=== PATIENT | female | born 1945 | race Caucasian/White ===

== ENCOUNTER 2016-03-05 12:34 | Emergency (ER) | payer MEDICARE ==
[~2016-03-05] VITALS: Ht 163.8 cm; Wt 102.3 kg
[2016-03-05 12:42] VITALS: BP 179/114; PULSE 107; RESP 18; TEMP 98.6; O2SAT 95
[2016-03-05] MEDS ORDERED: CARD4TAB2 PO (13:17)
[2016-03-05] MEDS ORDERED: PRED5PAK PO (13:17)
[2016-03-05] MEDS ORDERED: NEUR600T PO (13:17)
[2016-03-05] MEDS ORDERED: FERR325T PO (13:17)
[2016-03-05] MEDS ORDERED: WARF4TAB52 PO (13:17)
[2016-03-05] MEDS ORDERED: LOSA50TA PO (13:17)
[2016-03-05] MEDS ORDERED: METH5TAB4 PO (13:17)
[2016-03-05] MEDS ORDERED: CARD120T4 PO (13:17)
[2016-03-05] MEDS ORDERED: PREV15CA15 PO (13:17)
[2016-03-05] MEDS ORDERED: ISOS10TA3 PO (13:17)
[2016-03-05] MEDS ORDERED: HYDR25TA35 PO (13:17)
[2016-03-05] MEDS ORDERED: ROSU10 PO (13:17)
[2016-03-05] MEDS ORDERED: MIRTA15 PO (13:17)
[2016-03-05] MEDS ORDERED: LABE100T2 PO (13:17)
[2016-03-05] MEDS ORDERED: WARF-18 PO (13:17)
[2016-03-05] MEDS ORDERED: LANTINJ SQ (13:17)
[2016-03-05] MEDS ORDERED: LEVA500T PO (13:17)
[2016-03-05] MEDS ORDERED: CYMB30CA PO (13:17)
[2016-03-05] MEDS ORDERED: SODIUM CHLOR 0.9% 1000 ML INJ 1,000 ML IV SCH (13:21)
[2016-03-05] MEDS ORDERED: SODIUM CHLORIDE 0.9% FLUSH 5 ML FLUSH IVF PRN (13:30)
[2016-03-05] MEDS ORDERED: MORPHINE SULFATE 4 MG/ML INJ IV PUSH ONE ×2 (13:30→15:45)
[2016-03-05] MEDS ORDERED: ONDANSETRON HCL 4 MG/2 ML VIAL IVP ONE (13:30)
--- NOTE | 2016-03-05 14:03 | PD ---
HPI Chief Complaint: Fall Time Seen by Provider: 13:13 Travel History International Travel<30 days: No Contact w/Intl Traveler<30days: No Traveled to known affect area: No History of Present Illness HPI Patient is a 70-year-old female who presents to emergency room her daughter for evaluation of fall. Patient reports that on Thursday night, she was having a bad dream, reports that she ended up falling out of bed and landed on the floor. Patient reports that the way she fell, she did not hit her head on the ground. Patient adamantly denies injury to the head or neck. Reports that when she fell , she landed on her low back and was wedged in between her bed as well as a mattress which was propped up against the wall. Reports that she was able to get up and ambulate and get back into bed after her fall. Reports that she felt sore on Thursday but reports that by Thursday night, she had increased pain to her low back. Patient reports that she has not taken any medication for pain. Patient reports that she woke up this morning and had severe pain to her right lower back, reports that pain is causing her to have difficulties with ambulation. Patient denies saddle anesthesia. Patient denies incontinence of urine or bowel. Patient reports that she is able to walk, reports that his chest "painful to walk." PFSH Past Medical History Hx Anticoagulant Therapy: Yes (coumadin) Atrial Fibrillation: Yes Heart Rhythm Problems: Yes Cardiovascular Problems: Yes (afib) Cerebrovascular Accident: Yes Diabetes: Yes Patient Takes Glucophage: No Diminished Hearing: No Fibromyalgia: Yes Hypertension: Yes Integumentary: Yes (PSORIASIS) Renal Failure: Yes (STAGE 3) Thyroid Disease: Yes Tetanus Vaccination: Unknown Influenza Vaccination: Yes ?: Not Past Surgical History Thoracic Surgery: Yes (LUNG BIOPSY (BENIGN)) Other Surgery: Yes (LLE SPIDER BITE) Family History Family History: Negative Social History Alcohol Use: Yes (WINE, RARE) Tobacco Use: No Substance Use: No Allergies-Medications (Allergen,Severity, Reaction): Coded Allergies: Erythromycin (Verified Allergy, Severe, severe body pain, 03/05/16) Penicillin (Verified Allergy, Severe, rash, 03/05/16) Sulfa (Verified Allergy, Severe, rash, 03/05/16) Terramycin (Verified Allergy, Severe, rash, 03/05/16) Reported Meds & Prescriptions Reported Meds & Active Scripts Active Vicodin (Hydrocodone-Acetaminophen) 5-300 Mg Tab 1 Tab PO Q4H PRN Reported Crestor (Rosuvastatin Calcium) 10 Mg Tab 10 Mg PO HS Cardura (Doxazosin Mesylate) 4 Mg Tab 4 Mg PO BID Mirtazapine 15 Mg Tab 15 Mg PO HS Prevacid (Lansoprazole) 15 Mg Capdr 15 Mg PO DAILY Ferrous Sulfate 325 Mg Tab 325 Mg PO DAILY Cymbalta DR (Duloxetine HCl) 30 Mg Capdr 90 Mg PO DAILY Neurontin (Gabapentin) 600 Mg Tab 600 Mg PO BID Methimazole 5 Mg Tab 5 Mg PO DAILY Labetalol (Labetalol HCl) 100 Mg Tab 50 Mg PO BID Hydralazine (Hydralazine HCl) 25 Mg Tab 25 Mg PO BID Take with a meal Losartan (Losartan Potassium) 50 Mg Tab 50 Mg PO BID Isosorbide Mononitrate 10 Mg Tab 15 Mg PO BID Take 2 doses 7 hours apart. Cardizem (Diltiazem HCl) 120 Mg Tab 120 Mg PO TID Warfarin 2.5 Mg Tab 2.5 Mg PO DAILY Warfarin 1 Mg Tab 1.25 Mg PO WEEKLY Lantus Solostar Pen Inj (Insulin Glargine) 300 Unit/3 Ml Pen 35 Units SQ HS Prednisone (21) 5 mg tab Dose Pack (Prednisone) 5 Mg Dspk 5 Mg PO DIRECTED Levaquin (Levofloxacin) 500 Mg Tab 500 Mg PO DAILY Review of Systems General / Constitutional: No: Fever Eyes: No: Visual changes HENT: No: Headaches Cardiovascular: No: Chest Pain or Discomfort Respiratory: No: Shortness of Breath Gastrointestinal: No: Nausea, Vomiting, Diarrhea, Abdominal Pain Genitourinary: No: Dysuria Musculoskeletal: Positive: Limited ROM, Pain (pain to right lower back ) Skin: No Rash Neurologic: No: Weakness Psychiatric: No: Depression Endocrine: No: Polydipsia Hematologic/Lymphatic: No: Easy Bruising Physical Exam Narrative GENERAL: No acute distress, nontoxic SKIN: Warm and dry. HEAD: Atraumatic. Normocephalic. EYES: Pupils equal and round. No scleral icterus. No injection or drainage. ENT: No nasal bleeding or discharge. Mucous membranes pink and moist. NECK: Trachea midline. No JVD. CARDIOVASCULAR: Regular rate and rhythm. No murmur appreciated. RESPIRATORY: No accessory muscle use. Clear to auscultation. Breath sounds equal bilaterally. GASTROINTESTINAL: Abdomen soft, non-tender, nondistended. Hepatic and splenic margins not palpable. MUSCULOSKELETAL: No obvious deformities. No clubbing. No cyanosis. No edema. Patient with tenderness to her right lumbar paraspinal muscles, patient with no pain with straight leg raises, no obvious deformities or bruising's seen on evaluation NEUROLOGICAL: Awake and alert. No obvious cranial nerve deficits. Motor grossly within normal limits. Normal speech. PSYCHIATRIC: Appropriate mood and affect; insight and judgment normal. Data Data Last Documented VS Vital Signs Date Time Temp Pulse Resp B/P Pulse Ox O2 Delivery O2 Flow Rate FiO2 03/05/16 15:20 99 16 188/114 94 Room Air 03/05/16 12:42 98.6 Orders Basic Metabolic Panel (Bmp) (03/05/16 13:21) Complete Blood Count With Diff (03/05/16 13:21) Prothrombin Time / Inr (Pt) (03/05/16 13:21) Act Partial Throm Time (Ptt) (03/05/16 13:21) Urinalysis - C+S If Indicated (03/05/16 13:21) Iv Access Insert/Monitor (03/05/16 13:21) Morphine Inj (Morphine Inj) (03/05/16 13:30) Ondansetron Inj (Zofran Inj) (03/05/16 13:30) Sodium Chlor 0.9% 1000 Ml Inj (Ns 1000 M (03/05/16 13:21) Sodium Chloride 0.9% Flush (Ns Flush) (03/05/16 13:30) Ct Lumb Spine W/O Contrast (03/05/16 ) Ct Abd/Pel W/O Iv Contrast (03/05/16 13:21) Morphine Inj (Morphine Inj) (03/05/16 15:45) Labs Laboratory Tests Test 03/05/16 03/05/16 13:45 14:01 Urine Collection Type CLEAN CATCH Urine Color YELLOW Urine Turbidity CLEAR Urine pH 5.5 Urine Specific [place] 1.022 Urine Protein 30 mg/dL Urine Glucose (UA) 500 mg/dL Urine Ketones NEG mg/dL Urine Occult Blood LARGE Urine Nitrite NEG Urine Bilirubin NEG Urine Leukocyte Esterase NEG Urine RBC 4-9 /hpf Urine WBC 3-5 /hpf Urine Squamous Epithelial 0-5 /hpf Cells Urine Amorphous Sediment FEW Urine Hyaline Casts 0-2 /lpf Microscopic Urinalysis Comment CULT NOT INDICATED White Blood Count 6.9 TH/MM3 Red Blood Count 3.80 MIL/MM3 Hemoglobin 11.4 GM/DL Hematocrit 33.8 % Mean Corpuscular Volume 88.9 FL Mean Corpuscular Hemoglobin 29.9 PG Mean Corpuscular Hemoglobin 33.7 % Concent Red Cell Distribution Width 14.9 % Platelet Count 238 TH/MM3 Mean Platelet Volume 8.6 FL Neutrophils (%) (Auto) 82.3 % Lymphocytes (%) (Auto) 12.2 % Monocytes (%) (Auto) 5.1 % Eosinophils (%) (Auto) 0.1 % Basophils (%) (Auto) 0.3 % Neutrophils # (Auto) 5.8 TH/MM3 Lymphocytes # (Auto) 0.8 TH/MM3 Monocytes # (Auto) 0.3 TH/MM3 Eosinophils # (Auto) 0.0 TH/MM3 Basophils # (Auto) 0.0 TH/MM3 CBC Comment DIFF FINAL Differential Comment Prothrombin Time 15.0 SEC Prothromb Time International 1.3 RATIO Ratio Activated Partial 35.0 SEC Thromboplast Time Sodium Level 140 MEQ/L Potassium Level 4.2 MEQ/L Chloride Level 102 MEQ/L Carbon Dioxide Level 28.5 MEQ/L Anion Gap 10 MEQ/L Blood Urea Nitrogen 28 MG/DL Creatinine 1.90 MG/DL Estimat Glomerular Filtration 26 ML/MIN Rate Random Glucose 256 MG/DL Calcium Level 8.2 MG/DL [facility] Medical Decision Making Medical Screen Exam Complete: Yes Emergency Medical Condition: Yes Interpretation(s) Vital Signs Date Time Temp Pulse Resp B/P Pulse Ox O2 Delivery O2 Flow Rate FiO2 03/05/16 12:42 98.6 107 18 179/114 95 Differential Diagnosis Lumbar fracture, sciatica, lumbar strain, hematoma, kidney stone Narrative Course Patient is a 70-year-old female who is alert and oriented x 3 (and currently on Coumadin), presents to emergency room with complaints of right-sided low back pain. Patient reports that she began to have symptoms after she fell out of her bed Thursday night after having a bad dream. Patient reports that she landed on her low back on her right side. Patient reports that she has been sore since Thursday, reports that she has had increased pain his morning. Patient did not take any medications for pain at home. Patient with no signs of cauda equina, patient with no saddle anesthesia or incontinence of urine or bowel. Plan to obtain CAT scan studies of back to evaluate for fracture. Will give patient medications for pain. cbc: WBC: 6.9 Hemoglobin 11.4 Hematocrit 33.8 Platelets 238 BMP: Sodium 140 Chloride 102 Potassium 4.2 Carbon dioxide 28.5 BUN 28 Creatinine 1.90 Glucose 256 Patient's blood sugar is elevated at 256, patient reports that she was seen at an urgent care center yesterday for bronchitis and was put on steroids as well as Levaquin. Elevated blood sugar could be secondary to taking steroids, patient does have a history of diabetes. UA: Negative nitrites, negative leuk esterase, large occult blood, 4-9 red blood cells Vital Signs Date Time Temp Pulse Resp B/P Pulse Ox O2 Delivery O2 Flow Rate FiO2 03/05/16 15:20 99 16 188/114 94 Room Air 03/05/16 14:17 16 03/05/16 14:12 109 18 167/107 95 Room Air 03/05/16 12:42 98.6 107 18 179/114 95 Last Impressions Abdomen/Pelvis CT 03/05/16 1321 Signed Impressions: Service Date/Time: Saturday, March 05, 2016 14:46 - CONCLUSION: No acute intra-abdominal or pelvic process. Edgar Urena MD Lumbar Spine CT 03/05/16 0000 Signed Impressions: Service Date/Time: Saturday, March 05, 2016 14:46 - CONCLUSION: Nondisplaced acute fracture mid aspect right L3 transverse process. Extensive degenerative changes as described above. Edgar Urena MD Patient reevaluated, patient feeling much better. I reviewed all labs and all studies as well as findings with patient in detail. Patient with nondisplaced fractures of the mid aspect of L3 right transverse process. A copy of patient' s CAT scan reports was given to patient. Patient understands need to follow-up with her primary care doctor. I did write a prescription for Vicodin for patient as she has tolerated this in the past, patient understands that she should not drive or operate heavy machinery while taking this medication. Discussed with patient elevated blood sugar today, reports that she is a diabetic and is on prednisone for her bronchitis, understands need for better blood sugar control Diagnosis Primary Impression: Back pain Qualified Code: M54.5 - Acute right-sided low back pain without sciatica Additional Impressions: Renal insufficiency Hyperglycemia Lumbar transverse process fracture Qualified Code: S32.008A - Lumbar transverse process fracture, closed, initial encounter Hematuria Patient Instructions: General Instructions, Narcotic given in the ED Additional Instructions: Please follow-up with your primary care doctor Return to ER as needed Please bring your CAT scan reports to your doctor's office for follow-up on all studies from today Return to ER if symptoms progress or worsen Med/Other Pt SpecificInfo: Prescription(s) given Scripts Hydrocodone-Acetaminophen (Vicodin)5-300 Mg Tab1 Tab PO Q4H PRN (PAIN) #30 TAB Ref 0 Prov:Layne Gan DO 03/05/16 Disposition: 01 DISCHARGE HOME Condition: Stable Layne Gan DO Mar 05, 2016 14:03
[2016-03-05 14:05] LABS: BLOOD, URINE LARGE (NEG); GLUCOSE,URINE 500 mg/dL (NEG); KETONE, URINE NEG (NEG); NITRITE,URINE NEG (NEG); PH, URINE 5.5 (5.0-8.5)
[2016-03-05 14:09] LABS: AUTOMATED NEUTROPHIL # 5.8 TH/MM3 (1.8-7.7); BASOPHIL % 0.3 % (0.0-2.0); EOSINOPHIL % 0.1 % (0.0-4.0); HEMATOCRIT 33.8 % (35.0-46.0); HEMO FLAGS DIFF FINAL; LYMPH % 12.2 % (9.0-44.0); LYMPHOCYTE # 0.8 TH/MM3 (1.0-4.8); MEAN CELL VOLUME 88.9 FL (80.0-100.0); MEAN CORPUSCULAR HEMOGLOBIN 29.9 PG (27.0-34.0); MEAN CORPUSCULAR HGB CONC 33.7 % (32.0-36.0); MONO % 5.1 % (0.0-8.0); NEUT % 82.3 % (16.0-70.0); PLATELET COUNT 238 TH/MM3 (150-450); RED CELL DISTRIBUTION WIDTH 14.9 % (11.6-17.2); WHITE BLOOD COUNT 6.9 TH/MM3 (4.0-11.0)
[2016-03-05 14:12] VITALS: BP 167/107; PULSE 109; RESP 18; O2SAT 95
[2016-03-05 14:12] LABS: METHOD OF COLLECTION CLEAN CATCH; URINE COLOR YELLOW (YELLW/STRAW)
[2016-03-05 14:13] LABS: COMMENT (UR) CULT NOT INDICATED; CULTURE IF INDICATED CULT NOT INDICATED; HYALINE CAST, URINE 0-2 /lpf (RARE); SQUAMOUS EPITHELIAL CELL URINE 0-5 /hpf (0-5)
[2016-03-05 14:19] LABS: POTASSIUM 4.2 MEQ/L (3.5-5.1)
[2016-03-05 14:22] LABS: BICARBONATE 28.5 MEQ/L (21.0-32.0)
[2016-03-05 14:23] LABS: INTERNATIONAL NORMALIZED RATIO 1.3 RATIO
[2016-03-05 15:20] VITALS: BP 188/114; PULSE 99; RESP 16; O2SAT 94
--- NOTE | 2016-03-05 15:25 | RADHPO ---
EXAM DATE/TIME: 03/05/2016 14:46 [facility] COMPARISON: No previous studies available for comparison. INDICATIONS : Fell last night. Lower back pain. RADIATION DOSE: ; Reconstructed from previous dataset MEDICAL HISTORY : Cerebrovascular disease. Hypertension. Diabetes. SURGICAL HISTORY : None. ENCOUNTER: Initial ACUITY: 2 days PAIN SCALE: 5/10 LOCATION: lower quadrant back TECHNIQUE: Volumetric scanning of the lumbar spine was performed. Multiplanar reconstructions in the sagittal, coronal and oblique axial planes were performed. Using automated exposure control and adjustment of the mA and/or kV according to patient size, radiation dose was kept as low as reasonably achievable t o obtain optimal diagnostic quality images. FINDINGS: The soft tissues are negative. Bony structures reveal vertebral bodies to be intact and normally alig axel with no evidence of fracture, compression, subluxation, or destructive change. Multilevel anterio r marginal spurring is noted at L2-S1 as well as posterior osteophyte disc complexes most prominent a t L4-5 and facet arthritic changes with varying degrees of minimal localized spinal stenosis and neur al foraminal encroachment. There is a nondisplaced fracture through the mid L3 right tr ansverse process. CONCLUSION: Nondisplaced acute fracture mid aspect right L3 transverse process. Extensive degenerative changes as described above. Edgar Urena MD on March 05, 2016 at 15:22 Board Certified Radiologist. This report was verified electronically.
--- NOTE | 2016-03-05 15:29 | RADHPO ---
EXAM DATE/TIME: 03/05/2016 14:46 [facility] COMPARISON: No previous studies available for comparison. INDICATIONS : Abdominal pain today. ORAL CONTRAST: No oral contrast ingested. RADIATION DOSE: 23.92 CTDIvol (mGy) MEDICAL HISTORY : Hypertension. SURGICAL HISTORY : None. ENCOUNTER: Initial ACUITY: 1 day PAIN SCALE: 5/10 LOCATION: abdomen TECHNIQUE: Volumetric scanning of the abdomen and pelvis was performed. Using automated exposure control and ad justment of the mA and/or kV according to patient size, radiation dose was kept as low as reasonably achievable to obtain optimal diagnostic quality images. FINDINGS: LOWER LUNGS: The visualized lower lungs are clear. LIVER: Homogeneous density without lesion. There is no dilation of the biliary tree. No calcified gallston es. The gallbladder seems luminal structure without wall thickening or stones. SPLEEN: Normal size without lesion. PANCREAS: Within normal limits. KIDNEYS: Normal in size and shape. There is no stone, or hydronephrosis. 1.7 cm exophytic cyst off the lower pole of the left kidney ADRENAL GLANDS: Within normal limits. VASCULAR: There is no aortic aneurysm. BOWEL/MESENTERY: The stomach, small bowel, and colon demonstrate no acute abnormality. There is no free intraperitone al air or fluid. Few uncomplicated diverticuli of the descending and sigmoid colon. ABDOMINAL WALL: Within normal limits. RETROPERITONEUM: There is no lymphadenopathy. BLADDER: No wall thickening or mass. REPRODUCTIVE: Within normal limits. INGUINAL: There is no lymphadenopathy or hernia. MUSCULOSKELETAL: Extensive degenerative changes in lumbar spine. CONCLUSION: No acute intra-abdominal or pelvic process. Edgar Urena MD on March 05, 2016 at 15:24 Board Certified Radiologist. This report was verified electronically.
[2016-03-05] MEDS ORDERED: HYDR-3111 PO (15:44)
[2016-03-05 16:00] VITALS: RESP 16
== END 2016-03-05 16:19 | disposition home or self-care (01) ==
LOC: PHED 12:34
DX: S32.008A Other fracture of unspecified lumbar vertebra, initial encounter for closed fracture (principal); E11.65 Type 2 diabetes mellitus with hyperglycemia; N18.3 Chronic kidney disease, stage 3 (moderate); E11.22 Type 2 diabetes mellitus with diabetic chronic kidney disease; I12.9 Hypertensive chronic kidney disease with stage 1 through stage 4 chronic kidney disease, or unspecified chronic kidney disease; I48.91 Unspecified atrial fibrillation; Z79.4 Long term (current) use of insulin; W06.XXXA Fall from bed, initial encounter; Y93.9 Activity, unspecified; Y92.9 Unspecified place or not applicable; Y99.9 Unspecified external cause status; M79.7 Fibromyalgia
CPT/HCPCS: 72131; 74176; 80048; 81001; 85025; 85610; 85730; 96361; 96374; 96375; 96376; 99284; J2270; J2405; J7030